=== PATIENT | female | born 1980 | race Asian ===

== ENCOUNTER 2020-11-16 00:33 | Emergency (ER) | payer OTHER ==
[~2020-11-16] VITALS: Ht 162.6 cm; Wt 96.2 kg
[2020-11-16] MEDS ORDERED: FOLIC ACID1 MG PO (00:41)
[2020-11-16] MEDS ORDERED: EFFEXOR XR150 MG PO (00:41)
[2020-11-16] MEDS ORDERED: REMICADE 1100 MG/VIA (00:42)
[2020-11-16] MEDS ORDERED: METHOTREXATE 22.5 M1 PO (00:42)
[2020-11-16] MEDS ORDERED: TRAMADOL 50 MG50 MG PO (00:43)
[2020-11-16] MEDS ORDERED: ZANAFLEX4 M1 PO (00:43)
[2020-11-16] MEDS ORDERED: LYRICA 75 MG CA75 MG PO (00:44)
[2020-11-16 01:04] LABS: ABSOLUTE LYMPHOCYTES 1.2 thou/uL (0.8-5.3); ABSOLUTE MONOCYTES 0.5 thou/uL (0.0-1.2); ABSOLUTE NEUTROPHILS 6.7 thou/uL (1.6-8.1); BASOPHILS 0.3 %; EOSINOPHILS 0.2 %; HEMATOCRIT 44.5 % (37.0-47.0); HEMOGLOBIN 14.7 gm/dL (12.0-15.0); LYMPHOCYTES 14.1 %; MCH 29.6 pg (26.0-34.0); MCV 89.6 fL (80.0-100.0); MONOCYTES 6.3 %; MPV 8.1 fl. (7.2-11.1); NUCLEATED RBCS 0 /100WBC; PLATELET COUNT* 223 thou/uL (150-400); POLYS 79.1 %; RBC 4.97 mil/uL (4.20-5.00); RDW-CV 13.9 % (10.5-14.5); WBC 8.5 thou/uL (4.0-11.0)
[2020-11-16 01:15] LABS: CALCIUM 9.4 mg/dL (8.5-10.1); CREATININE 0.8 mg/dL (0.6-1.3); POTASSIUM 3.3 mmol/L (3.5-5.1)
[2020-11-16 01:19] LABS: ALBUMIN 4.7 g/dL (3.4-5.0); TOTAL BILIRUBIN 0.7 mg/dL (<0.1-1.0)
[2020-11-16] MEDS ORDERED: ATIVAN0.5 M1 PO (03:02)
[2020-11-16] MEDS ORDERED: ZOFRAN ODT4 MG PO (03:12)
[2020-11-16 03:14] VITALS: BP 139/94
== END 2020-11-16 03:16 | disposition home or self-care (01) ==
LOC: M.ERS 00:33
PROVIDERS: Emergency Medicine
DX: R11.10 Vomiting, unspecified (principal); T61.771A Other fish poisoning, accidental (unintentional), initial encounter; Z88.2 Allergy status to sulfonamides; Z79.899 Other long term (current) drug therapy; Y92.89 Other specified places as the place of occurrence of the external cause